=== PATIENT | female | born 1990 | race Caucasian/White ===

== ENCOUNTER 2017-08-14 21:45 | Emergency (ER) | payer BC ==
[~2017-08-14] VITALS: Ht 160 cm; Wt 99.1 kg
[2017-08-14 22:07] VITALS: BP 150/77; PULSE 107; RESP 18; TEMP 98.5; O2SAT 100
[2017-08-15] MEDS ORDERED: KETOROLAC TROMETHAMINE 30 MG/ML (IVP) VIAL IV PUSH ONE (00:45)
[2017-08-15] MEDS ORDERED: CLINDAMYCIN 900 MG/NS PREMIX 50 ML IV ONE (00:45)
[2017-08-15] MEDS ORDERED: DEXAMETHASONE SOD PHOS 20 MG/5 ML VIAL IV PUSH ONE (00:45)
[2017-08-15] MEDS ORDERED: SODIUM CHLOR 0.9% 1000 ML INJ 1,000 ML IV ONE (00:45)
--- NOTE | 2017-08-15 00:52 | PD ---
HPI Chief Complaint: ENT Complaint Time Seen by Provider: 00:40 Travel History International Travel<30 days: No Contact w/Intl Traveler<30days: No Traveled to known affect area: No History of Present Illness HPI 26-year-old white female presents emergency department with complaints of severe sore throat 2 days. She states that she is also having left ear pain, subjective fever and chills, congestion, cough and general malaise. She denies any nausea vomiting. No abdominal pain or diarrhea. No dysuria frequency. Symptoms are severe. No alleviating factors. Exacerbated by swallowing. PFSH Past Medical History Narrative Medical Ovarian cysts Tetanus Vaccination: < 5 Years ?: Not LMP: 07/22/2017 Past Surgical History Narrative Surgical Laparoscopy Social History Alcohol Use: Yes ([facility]) Tobacco Use: Yes (1ppd) Substance Use: Yes ([facility]) Allergies-Medications (Allergen,Severity, Reaction): Coded Allergies: No Known Allergies (Unverified , 08/15/17) Review of Systems Except as stated in HPI: all other systems reviewed are Neg Physical Exam Narrative GENERAL: Well-developed, well-nourished in no acute distress. Nontoxic appearing. HEAD: Normocephalic, atraumatic. EYES: Pupils equal round and reactive. Extraocular motions intact. No scleral icterus. No injection or drainage. ENT: TMs clear without erythema. The external auditory canals clear. Nose: clear . Posterior pharynx is erythematous and moist. Positive tonsillar edema with small amount of exudate. The left tonsillar papillae is deviated into the midline. The. Uvula is midline. Without deviation. Handling her secretions. Airway patent. Positive tonsillar and cervical adenopathy NECK: Trachea midline.Supple, nontender, moves head freely. No central bony tenderness or spasm. CARDIOVASCULAR: Regular tachycardic rate and rhythm without murmurs, gallops, or rubs. RESPIRATORY: Clear to auscultation. Breath sounds equal bilaterally. No wheezes , rales, or rhonchi. GASTROINTESTINAL: Abdomen soft, non-tender, nondistended. No hepato-splenomegaly , or palpable masses. No guarding. EXTREMITIES: No clubbing, cyanosis, or edema. No joint tenderness, effusion, or edema noted. BACK: Nontender without deformity or crepitance. No flank tenderness. Data Data Last Documented VS Vital Signs Date Time Temp Pulse Resp B/P (MAP) Pulse Ox O2 Delivery O2 Flow Rate FiO2 08/14/17 22:07 98.5 107 18 150/77 (101) 100 Orders Orders Group A Rapid Strep Screen (08/15/17 00:45) Iv Access Insert/Monitor (08/15/17 00:45) Dexamethasone Inj (Decadron Inj) (08/15/17 00:45) Clindamycin 900 Mg/Ns Premix (Cleocin 90 (08/15/17 00:45) Ns (Bolus) Inj (08/15/17 00:45) Ketorolac Inj (Toradol Inj) (08/15/17 00:45) MDM Medical Decision Making Medical Screen Exam Complete: Yes Emergency Medical Condition: Yes Differential Diagnosis Differential diagnosis: Collier, viral sore throat, strep throat, vomiting, diarrhea Narrative Course IV access is obtained. Patient was given a liter bolus of saline, clindamycin 900 mg IV, Decadron 10 mg IV. Rapid strep collected and sent. Condition: Stable Andi Gama Aug 15, 2017 00:52
[2017-08-15] MEDS ORDERED: PRED20 PO (01:31)
[2017-08-15] MEDS ORDERED: MAGICADU2 SWISH-SWAL (01:31)
[2017-08-15] MEDS ORDERED: CLEO300C2 PO (01:31)
== END 2017-08-15 01:49 | disposition home or self-care (01) ==
LOC: NEPD 21:45
DX: J03.90 Acute tonsillitis, unspecified (principal); F17.200 Nicotine dependence, unspecified, uncomplicated; F12.90 Cannabis use, unspecified, uncomplicated
CPT/HCPCS: 87081; 87880; 96374; 96375; 99284; J1100; J1885; J7030